=== PATIENT | female | born 1995 | race Caucasian/White ===

== ENCOUNTER 2020-03-05 00:43 | Inpatient (IN) | payer BC ==
[2020-03-05] VITALS (12 sets, daily range): BP systolic 99–127; BP diastolic 60–88
[~2020-03-05] VITALS: Ht 157 cm; Wt 71.5 kg
--- NOTE | 2020-03-05 00:49 | NUR ---
GINA GRIDER presented to unit via ambulatory from ED, accompanied by s/o, with c/o WATER BROKE. GINA GRIDER weighed, gowned, voided, and to bed. EFHM and TOCO applied, VS taken. GINA GRIDER oriented to bed controls, call light, TV, heat, and A/C controls.
--- NOTE | 2020-03-05 01:05 | NUR ---
notified of pt's arrival and exam. Order to admit and call for section.
--- NOTE | 2020-03-05 01:11 | NUR ---
Anesthesia notified of pt's status. Pt last ate at 1900. Anesthesia would like to wait until 8 hrs npo. c/s scheduled from 329
--- NOTE | 2020-03-05 01:14 | NUR ---
Notified of anesthesia request. c/s scheduled form [id number].
--- NOTE | 2020-03-05 01:20 | NUR ---
Head Of Geography notified that surgery would be needed for 0330 c/s
[2020-03-05] MEDS ORDERED: FAMOTIDINE 20MG/2ML IV (PEPCID) IV ONE (01:30)
[2020-03-05] MEDS ORDERED: METOCLOPRAMIDE INJ 10 MG/2 ML (REGLAN) IV ONE (01:30)
[2020-03-05] MEDS ORDERED: CITRIC ACID/SOB CIT (BICITRA) 30 ML UDC PO ONE (01:30)
[2020-03-05] MEDS: LACTATED RINGERS 1,000 ML IV PRN ×3 (01:30→03:37)
[2020-03-05 01:40] LABS: BASOPHILS % (AUTO) 0 % (0-10); EOSINOPHILS # (AUTO) 0.1 10^3/uL (0.0-0.3); EOSINOPHILS % (AUTO) 1 % (0-10); HEMATOCRIT 35 % (35-52); HEMOGLOBIN 11.8 G/DL (11.5-16.0); LYMPHOCYTES # (AUTO) 2.5 X 10^3 (1.0-4.0); LYMPHOCYTES % (AUTO) 24 % (12-44); MEAN CORPUSCULAR HEMOGLOBIN 31 PG (25-34); MEAN CORPUSCULAR HGB CONC 34 G/DL (32-36); MEAN CORPUSCULAR VOLUME 92 FL (80-99); MEAN PLATELET VOLUME 9.6 FL (7.4-10.4); MONOCYTES # (AUTO) 0.9 X 10^3 (0.0-1.0); MONOCYTES % (AUTO) 9 % (0-12); NEUTROPHILS # (AUTO) 6.9 X 10^3 (1.8-7.8); NEUTROPHILS % (AUTO) 66 % (42-75); PLATELET COUNT 182 10^3/uL (130-400); RED CELL DISTRIBUTION WIDTH 12.5 % (10.0-14.5); WHITE BLOOD COUNT 10.4 10^3/uL (4.3-11.0)
[2020-03-05] MEDS ORDERED: ceFAZolin 2 GM IV Premixed 50 ML ONE (02:42)
--- NOTE | 2020-03-05 02:42 | History & Physical-OB/GYN ---
History of Present Illness History of Present Illness Reason for visit/HPI Ms. Mattson, A0 at 36 4/7 weeks, presents to the hospital with PROM and contractions Date of Admission Mar 05, 2020 at 01:20 Date Seen by a Provider: Mar 05, 2020 Time Seen by a Provider: 02:00 I consulted on this patient on 03/05/20 02:36 Attending Physician Dionicio Robertosn DO Admitting Physician Dionicio Robertson DO Consult Allergies and Home Medications Allergies Coded Allergies: sulfamethoxazole (Verified Allergy, Mild, Hives, 03/05/20) trimethoprim (Verified Allergy, Mild, Hives, 03/05/20) Patient Home Medication List Home Medication List Reviewed: Yes Past Ajpsxiz-Bcyide-Yrrven Hx Patient Social History Marrital Status: Number of Children: 1 Number of living children: 1 Alcohol Use: Denies Use Recreational Drug Use: No Smoking Status: Never a Smoker Physical Abuse Screen: No Sexual Abuse: No Recent Foreign Travel: No Contact w/other who traveled: No Recent Hopitalizations: No Recent Infectious Disease Expo: No Seasonal Allergies Seasonal Allergies: No Surgeries Yes Appendectomy, Section Respiratory No Cardiovascular No Neurological No Reproductive System Expected Date of Delivery: Mar 29, 2020 Genitourinary No Gastrointestinal No Musculoskeletal No Endocrine History of Endocrine Disorders: No HEENT History of HEENT Disorders: No Cancer No Psychosocial History of Psychiatric Problem: No Integumentary History of Skin or Integumenta: No Blood Transfusions History of Blood Disorders: No Adverse Reaction to a Blood Tr: No Review of Systems Constitutional: see HPI Physical Exam Physical Exam Vital Signs Vital Signs Date Time Temp Pulse Resp B/P (MAP) Pulse Ox O2 Delivery O2 Flow Rate FiO2 03/05/20 02:05 36.7 88 18 98 Room Air Capillary Refill : Less Than 3 Seconds Labs Laboratory Tests 03/05/20 01:25: White Blood Count 10.4, Red Blood Count 3.80L, Hemoglobin 11.8, Hematocrit 35, Mean Corpuscular Volume 92, Mean Corpuscular Hemoglobin 31, Mean Corpuscular Hemoglobin Concent 34, Red Cell Distribution Width 12.5, Platelet Count 182, Mean Platelet Volume 9.6, Neutrophils (%) (Auto) 66, Lymphocytes (%) (Auto) 24, Monocytes (%) (Auto) 9, Eosinophils (%) (Auto) 1, Basophils (%) (Auto) 0, Neutrophils # (Auto) 6.9, Lymphocytes # (Auto) 2.5, Monocytes # (Auto) 0.9, Eosinophils # (Auto) 0.1, Basophils # (Auto) 0.0 General Appearance: No Apparent Distress, WD/WN Respiratory: Chest Non Tender, Lungs Clear, Normal Breath Sounds Cardiovascular: Regular Rate, Rhythm, No Murmur Abdominal: normal bowel sounds, non tender Labia: WNL Vagina: WNL Cervix: WNL Cervix OS: open (1 cm) Uterus: Enlarged (Gravid) Extremity: Normal Inspection, Non Tender, No Calf Tenderness Assessment/Plan Assessment and Plan Intrauterine at 36 4/7 weeks 2. PROM 3. Previous 4. Unknown GBS Status Plan: Proceed with an immediate . The procedure and its associated risks were discussed. All questions were answered. Informed consent was obtained. Admission Diagnosis Admission Status: Inpatient Order (span 2 midnights) Reason for Inpatient Admission: Proceed with an immediate Clinical Quality Measures DVT/VTE Risk/Contraindication: Risk Factor Score Per Nursin RFS Level Per Nursing on Admit: 1=Low/No VTE PPX DIONICIO ROBERTSON DO Mar 05, 2020 02:42
[2020-03-05] MEDS ORDERED: fentaNYL INJECTION 100 MCG/2 ML AMP ONE (03:03)
[2020-03-05] MEDS ORDERED: diphenhydrAMINE 50 MG/ML INJ (BENADRYL) IV PRN (03:30)
[2020-03-05] MEDS ORDERED: ONDANSETRON 4 MG/2 ML (SDV) Z0FRAN IV PRN (03:30)
[2020-03-05] MEDS ORDERED: NALOXONE 0.4 MG/ML 1 ML (NARCAN) VIAL IV PRN (03:30)
[2020-03-05] MEDS ORDERED: OXYTOCIN PRE-MIX DRIP 1,000 ML IV ONE (03:50)
[2020-03-05] MEDS ORDERED: ONDANSETRON 4 MG/2 ML (SDV) Z0FRAN ONE (03:50)
[2020-03-05] MEDS ORDERED: OXYTOCIN PRE-MIX DRIP 500 ML IV SCH (04:18)
[2020-03-05] MEDS ORDERED: MEASLES,MUMPS,RUBELLA 1 EA INJ SC SCH (04:30)
[2020-03-05] MEDS ORDERED: TETANUS,DIPTH,PERTUSS P/F (BOOSTRIX) 0.5 ML VIAL IM SCH (04:30)
[2020-03-05] MEDS ORDERED: morphine INJ 4 MG/ML 1 ML (VIAL/SYRINGE) IV PRN (04:30)
[2020-03-05] MEDS ORDERED: ONDANSETRON 4 MG/2 ML (SDV) Z0FRAN IVP PRN (04:30)
--- NOTE | 2020-03-05 04:31 | Cesarean Section Operative ---
Procedure Procedure Note Pre-operative Diagnosis: Lesley hoyos (24 /Para / ,Gestational Age (wks)36 4/7 weeks with [PROM, Labor, Previous and Unknown GBS Status] Post-operative Diagnosis: same [] Procedure: [Repeat] low transverse section Physician: SANTIAGO DARLING Batch Mixer Operator: [None] Estimated blood loss: [150] mL Disposition: [Recovery Room] Findings: Viable [Male] , Apgars [8, 8], weight [6 lb 2 oz], intact placenta, 3vc, normal appearing uterus, tubes, and ovaries. Indications:Lesley hoyos (24 /Para / ,Gestational Age (wks)36 4/7 presenting for [PROM, Labor, Previous , and Unknown GBS status]. Procedure Details: The patient was seen in pre-op and the procedure was discussed with the patient in full, including the risks, benefits, and alternatives. All questions were answered. The patient was taken to the operating room and a time out was performed, verifying patient and procedure. After spinal anesthesia was placed by our anesthesia colleagues, the patient was placed in the dorsal supine with leftward tilt for uterine displacement.~ Her abdomen was then prepped and draped in the typical sterile fashion. An elliptical skin incision was made over her previous skin scar (the old incision was removed) using a scalpel and carried down through the underlying fascia. The fascia was incised in the midline and tented up using Braeden clamps. On both the inferior and superior fascia side the rectus muscle was dissected off bluntly and sharply using Meza scissors. The peritoneum was identified and entered bluntly in the midline. This was then stretched laterally using manual strength. After entering the abdominal cavity and confirming lack of intraperitoneal adhesions, a large Jono retractor was placed and the lower uterine segment was visualized. A bladder flap was created with the use of Metzenbaum scissors.~ A scalpel was utilized to make a low transverse uterine incision. Amniotomy was performed with an Allis clamp with return of clear fluid. The infant's head was grasped and brought to the level of the incision. Fundal pressure was applied and was delivered without difficulty. Mouth and nares were suctioned with bulb suction. After the umbilical cord was clamped and cut, the infant was handed off to the pediatric staff where NRP protocol was followed. A sample of cord blood was then obtained. The placenta was delivered intact via uterine massage. The uterus was exteriorized and cleared of all clots and debris. The uterine incision was closed using 0 Vicryl in a running locked fashion. A second imbricating layer was placed using 0 Vicryl in a running fashion as well. The vesicouterine peritoneum was reapproximated with 3-0 Vicryl in a running manner. The uterus was flexed forward and the posterior rectouterine space was inspected and cleared of all clots and debris. Again the hysterotomy site was examined and hemostasis was observed. The bilateral tubes and ovaries appeared normal. The uterus was placed back into the abdominal cavity and abdominal gutters were cleared of all clots and debris. A final check of the uterine incision showed it to be hemostatic. The peritoneum was closed using 3-0 Vicryl in a running fashion. The fascia was closed with 0 Vicryl in a running fashion. The subcutaneous space was hemostatic, and irrigated. The subcutaneous space was closed with 3-0 Plain Gut in a running fashion. The skin was then closed using 4-0 Monocryl in a running subcuticular fashion. The skin edges were reapproximated together and were hemostatic. A pressure dressing was applied. All sponge, lap and needle counts were correct x 3 at the end of the procedure per nursing. Vitals - Labs Vital Signs - I&O Vital Signs Date Time Temp Pulse Resp B/P (MAP) Pulse Ox O2 Delivery O2 Flow Rate FiO2 03/05/20 02:05 36.7 88 18 98 Room Air I & O 03/05/20 06:59 Intake Total 1050 ml Balance 1050 ml Labs Laboratory Tests 03/05/20 01:25: White Blood Count 10.4, Red Blood Count 3.80L, Hemoglobin 11.8, Hematocrit 35, Mean Corpuscular Volume 92, Mean Corpuscular Hemoglobin 31, Mean Corpuscular Hemoglobin Concent 34, Red Cell Distribution Width 12.5, Platelet Count 182, Mean Platelet Volume 9.6, Neutrophils (%) (Auto) 66, Lymphocytes (%) (Auto) 24, Monocytes (%) (Auto) 9, Eosinophils (%) (Auto) 1, Basophils (%) (Auto) 0, Neutrophils # (Auto) 6.9, Lymphocytes # (Auto) 2.5, Monocytes # (Auto) 0.9, Eosinophils # (Auto) 0.1, Basophils # (Auto) 0.0 SANTIAGO DARLING DO Mar 05, 2020 04:31
--- NOTE | 2020-03-05 05:25 | NUR ---
Pericare performed per this RN. Fundus firm, new pad and gown in place. Pt transferred to out of recovery at time with this RN, s.o., and OB RN at side. To nursery via bed to see . Infant placed skin to skin on mother's chest.
[2020-03-05] MEDS: KETOROLAC 30 MG/ML VIAL IV SCH ×4 (05:35→23:48)
[2020-03-05] MEDS ORDERED: CATHETER FLUSH 10 ML SYR IV SCH (06:00)
[2020-03-05] MEDS: METOCLOPRAMIDE 10 MG (REGLAN) TAB PO SCH ×4 (06:20→23:48)
[2020-03-05] MEDS: ACETAMINOPHEN 500 MG TAB (TYLENOL) PO SCH ×4 (06:20→23:48)
--- NOTE | 2020-03-05 06:25 | NUR ---
Pt remains in nursery in bed. VS taken. Pain medication given per request. Pt denies needing anything further at time.
[2020-03-05] MEDS ORDERED: BISACODYL 10 MG SUPP (DULCOLAX) PR SCH (07:00)
--- NOTE | 2020-03-05 07:30 | NUR ---
PT REMAINS IN THE NURSERY IN PT BED HOLDING INFANT THAT IS BEING TRANSFERRED.
--- NOTE | 2020-03-05 08:00 | NUR ---
VS AND ASSESSMENT PERFORMED IN NURSERY. PAD CHANGE. PASSED 4 CM ELONGATED CLOT. FF U/1. BLADDER NON-PALPABLE. VAGINAL FLOW LT/MOD RUBRA CURRENTLY. HOLDING .
[2020-03-05] MEDS ORDERED: MILK OF MAGNESIA 400 MG/5 ML 30 ML UDC ONE ×2 (08:11→19:18)
[2020-03-05] MEDS: DOCUSATE SODIUM 100 MG (COLACE) CAP PO SCH ×2 (08:18→19:43)
--- NOTE | 2020-03-05 08:33 | NUR ---
DR. DARLING NOTIFIED OF BEING TRANSFERRED TO [facility] [place].
--- NOTE | 2020-03-05 09:00 | NUR ---
REMAINS IN THE NURSERY. DOING WELL.HOLDING INFANTIN PT BED. RNS X2 IN NURSERY TO ASSIST NEEDED.
--- NOTE | 2020-03-05 09:19 | NUR ---
DR. DARLING CALLED TO SAY IF PATIENT WANTS TO LEAVE LATER TODAY HE WOULD DISCHARGE HER. PT PLANNING TO GO AHEAD AND STAY UNTIL MORNING.
--- NOTE | 2020-03-05 10:05 | NUR ---
RETURNED TO ROOM 307 VIA BED. BLADDER PALPABLE. ASSISTED UP TO THE BATHROOM. VOIDED 1000 CC URINE. NO CLOTS.PERICARE PERFORMED AND UNDERWEAR APPLIED. BACK TO SIT ON EDGE OF BED TO EAT CLEAR LIQUIDS.
--- NOTE | 2020-03-05 10:27 | NUR ---
OXYIR 5 MG P.O. TAKING CLEAR LIQUID BREAKFAST.
--- NOTE | 2020-03-05 10:40 | NUR ---
TO THE NURSERY VIA W/C TO SEE INFANT AGAIN BEFORE TRANSPORT TEAM ARRIVES. PT TOOK CLEAR LIQUIDS IN HER ROOM. DENIES ANY NAUSEA. FF U/1. VAG FLOW LT/MOD RUBRA.
--- NOTE | 2020-03-05 12:09 | NUR ---
OXYIR 5 MG P.O. FOR C/O ABD PAIN.
--- NOTE | 2020-03-05 12:15 | NUR ---
RETURNED TO NURSERY VIA W/C. UP TO THE BATHROOM. VOIDED 400 CC. TIESHA CARE PERFORMED. PT AMBULATING WELL. PT'S MOTHER HERE TO STAY NOW R/T SPOUSE GOING TO WITH INFANT.
--- NOTE | 2020-03-05 12:35 | NUR ---
AMBULATED TO NURSERY. WAITING ON TRANSPORT TEAM.
--- NOTE | 2020-03-05 13:26 | NUR ---
TRANSPORT TEAM LEFT WITH .
--- NOTE | 2020-03-05 14:56 | NUR ---
OXYIR 5 MG P.O. FOR C/O ABD PAIN. RESTING IN BED. MOM RESTING ON COUCH.
--- NOTE | 2020-03-05 15:30 | NUR ---
RESTING QUIETLY. PT'S MOM ASLEEP BEDSIDE.
--- NOTE | 2020-03-05 16:30 | NUR ---
RT HERE TO DO INSTRUCTION ON I.S. PT PUMPING BREASTS.
--- NOTE | 2020-03-05 16:57 | NUR ---
TDAP GIVEN IM IN LEFT DELTOID. SITE CLEAR.
--- NOTE | 2020-03-05 18:30 | NUR ---
CONTINUES TO DO WELL. GOOD URINE OUTPUT. TAKING FLUIDS WELL.
[2020-03-05] MEDS ORDERED: BISACODYL 10 MG SUPP (DULCOLAX) ONE (19:18)
[2020-03-06] MEDS ORDERED: MILK OF MAGNESIA 400 MG/5 ML 30 ML UDC PO SCH (05:00)
[2020-03-06 05:42] LABS: BASOPHILS % (AUTO) 0 % (0-10); EOSINOPHILS # (AUTO) 0.2 10^3/uL (0.0-0.3); EOSINOPHILS % (AUTO) 2 % (0-10); HEMATOCRIT 30 % (35-52); HEMOGLOBIN 9.7 G/DL (11.5-16.0); LYMPHOCYTES % (AUTO) 22 % (12-44); MEAN CORPUSCULAR HEMOGLOBIN 31 PG (25-34); MEAN CORPUSCULAR HGB CONC 33 G/DL (32-36); MEAN CORPUSCULAR VOLUME 95 FL (80-99); MONOCYTES # (AUTO) 0.8 X 10^3 (0.0-1.0); MONOCYTES % (AUTO) 9 % (0-12); NEUTROPHILS % (AUTO) 67 % (42-75); PLATELET COUNT 170 10^3/uL (130-400); RED CELL DISTRIBUTION WIDTH 12.7 % (10.0-14.5)
[2020-03-06] MEDS ORDERED: IBUPROFEN 600 MG (MOTRIN) TAB PO ONE (05:59)
[2020-03-06] MEDS ORDERED: IBUPROFEN 800 MG (MOTRIN) TAB PO ONE (06:03)
[2020-03-06] MEDS: METOCLOPRAMIDE 10 MG (REGLAN) TAB PO SCH (06:06)
[2020-03-06] MEDS: ACETAMINOPHEN 500 MG TAB (TYLENOL) PO SCH (06:06)
[2020-03-06 06:10] VITALS: BP 113/63
[2020-03-06] MEDS ORDERED: BISACODYL 10 MG SUPP (DULCOLAX) PR SCH (07:00)
[2020-03-06] MEDS ORDERED: BISACODYL 10 MG SUPP (DULCOLAX) PR NR (07:00)
--- NOTE | 2020-03-06 07:00 | NUR ---
report from salma napier rn
--- NOTE | 2020-03-06 07:15 | NUR ---
seals to room to see pt. new orders noted.
[2020-03-06] MEDS ORDERED: DCS100C PO (07:24)
[2020-03-06] MEDS ORDERED: OXYC5TAB96 PO (07:24)
[2020-03-06] MEDS ORDERED: IBUP-1780 PO (07:24)
[2020-03-06] MEDS ORDERED: ACET-93 PO (07:24)
--- NOTE | 2020-03-06 07:37 | Discharge Summary ---
Diagnosis/Chief Complaint Date of Admission Mar 05, 2020 at 01:20 Date of Discharge March 05, 2020 Discharge Date: Mar 06, 2020 Discharge Time: 08:00 Admission Diagnosis Admission Diagnosis Intrauterine at 36 4/7 weeks 2. PROM 3. Labor 4. Unknown GBS Status 5. Previous Discharge Diagnosis Intrauterine at 36 4/7 weeks 2. PROM 3. Labor 4. Unknown GBS Status 5. Delivery 6. Previous Reason Hospital Visit Ms. Mattson, A0 at 36 4/7 weeks, presents to the hospital with PROM and contractions Discharge Summary Hospital Course Was the Problem List Reviewed?: Yes Hospital Course Ms. Mattson, at 36 4/7 weeks with history of previous , presented to Labor & Delivery with PROM and contractions She was taken for an immediate repeat . The procedure was performed without complications. On her day of surgery, she was given IV and oral pain medication along with other comfort measures. Her day was unremarkable. Postoperative Day #1 found Ms. Mattson voiding, ambulating, moving her bowels, tolerating a Regular Diet and controlling her pain with oral medications. Her vital signs have remained stable. The remainder of her hospitalization was unremarkable. I will discharge her to home with instructions, prescriptions, and a follow up appointment. Labs Laboratory Tests 03/05/20 01:25: Red Blood Count 3.80L 03/06/20 05:34: Red Blood Count 3.12L, Hemoglobin 9.7L, Hematocrit 30L Procedures None. Discharge Physical Examination Allergies: Coded Allergies: sulfamethoxazole (Verified Allergy, Mild, Hives, 03/05/20) trimethoprim (Verified Allergy, Mild, Hives, 03/05/20) Vitals & I&Os Vital Signs Date Time Temp Pulse Resp B/P (MAP) Pulse Ox O2 Delivery O2 Flow Rate FiO2 03/06/20 06:10 36.5 68 18 113/63 (80) 99 03/05/20 19:45 Room Air General Appearance: Alert, Oriented X3, Cooperative HEENT: Atraumatic Respiratory: Clear to Auscultation, Normal Air Movement Cardiovascular: Regular Rate, No Murmurs Abdominal: Normal Bowel Sounds, Soft Extremities: No Clubbing, No Cyanosis Skin: No Rashes Neuro: Normal Gait, Normal Speech Psych/Mental Status: Mental Status NL Discharge Home Medications Reviewed and agree with Discharge Medication list on patient's Discharge Instruction sheet Instructions to Patient/Family Please see electronic discharge instructions given to patient. Clinical Quality Measures DVT/VTE Risk/Contraindication: Risk Factor Score Per Nursin RFS Level Per Nursing on Admit: 1=Low/No VTE PPX SANTIAGO DARLING DO Mar 06, 2020 07:37
--- NOTE | 2020-03-06 07:55 | NUR ---
shift assessment completed. pt up and dressed and ready to leave. abd incision open to air and abdominal binder in place. denies C/O's pain. resp unlabored pt reports positive bowel movement. moves all extremities without pain or swelling. pumped colostrum given to pt before leaving hospital.
[2020-03-06 08:00] VITALS: BP 114/81
--- NOTE | 2020-03-06 08:00 | NUR ---
pt escorted ambulatory to family vehicle. will call dr murry office for follow up 1 week appointment
--- NOTE | 2020-03-06 08:32 | Anesthesia-Regional Post-Op ---
Regional Patient Condition Mental Status: Alert, Oriented x3 Circulation: Same as Pre-Op Headache: Absent Sensation: Full Recovery Motor Block: Absent Post Op Complications Complications None Follow Up Care/Instructions Patient Instructions None needed. Anesthesia/Patient Condition Patient is doing well, no complaints, stable vital signs, no apparent adverse anesthesia problems. No complications reported per nursing. YAQUELIN SHRESTHA CRNA Mar 06, 2020 08:31
[2020-03-06] MEDS ORDERED: IBUPROFEN 800 MG (MOTRIN) TAB PO SCH (10:30)
== END 2020-03-06 08:00 | disposition home or self-care (01) | DRG 788 ==
LOC: WSo 00:43 → LDRP 00:44 → WSo 01:19 → LDRP 01:20 → WS 05:25 → LDRP 10:06
PROVIDERS: ADMIT Obstetrics & Gynecology; ATTEND Obstetrics & Gynecology
PROC: 10D00Z1 Extraction of Products of Conception, Low, Open Approach (ICD-10-PCS; principal; 2020-03-05 03:18)
DX: O60.14X0 Preterm labor third trimester with preterm delivery third trimester, not applicable or unspecified (principal); Z37.0 Single live birth; O34.211 Maternal care for low transverse scar from previous cesarean delivery; Z3A.36 36 weeks gestation of pregnancy
CPT/HCPCS: 36415; 85025; 86850; 86900; 86901; 90715; 94664; 99212